=== PATIENT | female | born 1965 | race Two or more races ===

== ENCOUNTER 2021-04-05 07:00 | Inpatient (IN) | payer OTHER ==
[~2021-04-05] VITALS: Ht 165.1 cm; Wt 74.8 kg
[2021-04-05] MEDS ORDERED: ZESTRIL10 M1 PO (08:47)
[2021-04-05] MEDS ORDERED: LATUDA40 MG PO (08:48)
[2021-04-05] MEDS ORDERED: LAMOTRIGINE100 MG PO (08:48)
[2021-04-05] MEDS ORDERED: IRON325 MG PO (08:49)
[2021-04-05] MEDS ORDERED: ESTAZOLAM2 MG PO (08:49)
[2021-04-05] MEDS ORDERED: ESCITALOPRAM OX10 MG PO (08:49)
[2021-04-05] MEDS ORDERED: VITAMIN D310 MCG/1 M PO (08:50)
[2021-04-05] MEDS ORDERED: VITAMIN B122500 MCG PO (08:50)
[2021-04-05] MEDS ORDERED: FOLIC PO (08:51)
== END 2021-04-09 10:46 | disposition home or self-care (01) | DRG 743 ==
LOC: O/R 04-08 06:35 → SURH 04-08 07:00 → EDBD 04-08 07:00 → SURH 04-08 12:15 → OB/GYN 04-08 14:56
PROVIDERS: ADMIT Obstetrics & Gynecology Gynecologic Oncology; ATTEND Obstetrics & Gynecology Gynecologic Oncology
PROC: 0UT24ZZ Resection of Bilateral Ovaries, Percutaneous Endoscopic Approach (ICD-10-PCS; 2021-04-08)
PROC: 0UT74ZZ Resection of Bilateral Fallopian Tubes, Percutaneous Endoscopic Approach (ICD-10-PCS; 2021-04-08)
PROC: 0UT94ZZ Resection of Uterus, Percutaneous Endoscopic Approach (ICD-10-PCS; principal; 2021-04-08 12:15)
DX: N72 Inflammatory disease of cervix uteri (principal); N80.0 Endometriosis of uterus; D25.1 Intramural leiomyoma of uterus; D25.2 Subserosal leiomyoma of uterus; N83.12 Corpus luteum cyst of left ovary; N83.311 Acquired atrophy of right ovary; R19.00 Intra-abdominal and pelvic swelling, mass and lump, unspecified site; R97.0 Elevated carcinoembryonic antigen [CEA]